=== PATIENT | male | born 1940 | race Caucasian/White ===

== ENCOUNTER → 2020-11-23 14:31 | Outpatient (CLI) | payer MEDICARE, SELFPAY ==
--- NOTE | ~2020-11-23 | XR_ITS ---
XR elbow RT 2V DATE: 11/23/2020 14:43 INDICATION: Right elbow pain. No known injury. TECHNIQUE: 4 views COMPARISON: None FINDINGS: There is mild degenerative change. No fracture or dislocation, periosteal reaction or bone destruction, radiopaque intra-articular loose body. No evidence of joint effusion. IMPRESSION: Mild degenerative change Reviewed, dictated and finalized at location A. IMPRESSION: Mild degenerative change
== END ==
PROVIDERS: PCP Family Medicine; Visit Provider Nurse Practitioner Family
DX: M19.021 Primary osteoarthritis, right elbow (principal)
CPT/HCPCS: 73070

== ENCOUNTER → 2022-12-30 12:22 | Outpatient (CLI) | payer MEDICARE, SELFPAY ==
--- NOTE | ~2022-12-30 | XR_ITS ---
EXAMINATION: XR chest 2V 12/30/2022 12:34 INDICATION: Productive cough PROCEDURE: 2 view chest COMPARISON: No prior studies for comparison. FINDINGS: The lungs are clear. The cardiomediastinal silhouette is within normal limits. There are no pleural effusions. There is no pneumothorax suspected. IMPRESSION: 1: NO ACUTE CARDIOPULMONARY DISEASE. Reviewed, dictated and finalized at location L.
== END ==
PROVIDERS: PCP Family Medicine; Visit Provider Family Medicine
DX: R05.8 Other specified cough (principal)
CPT/HCPCS: 71046

== ENCOUNTER 2023-12-01 02:01 | Day surgery (SDC) | payer MEDICARE, SELFPAY ==
[2023-11-12 11:54] VITALS: BMI 27.1
[2023-12-01 07:19] VITALS: BP 135/75; PULSE 62; RESP 18; TEMP 36.1; O2SAT 98; BMI 25.2
[2023-12-01] MEDS: LACTATED RINGERS 1,000 ML 150 ML IV CONT (07:37)
--- NOTE | 2023-12-01 08:01 | WPDANESEPPF ---
Anes - Initial Pre Proc Eval Procedure: Operation Date: 12/01/23 08:30 Proposed Procedures p Colonoscopy - Eddie Zayas MD Date/Time: 12/01/23 08:01 Surgeon: Eddie Zayas MD Pre Op Diagnosis: Positive Cologuard Patient Data Age: 82 Gender: M Height: 1.83 m Weight: 84.3 kg Last Vital Signs Temp 97 F L 12/01/23 07:19 Pulse 62 12/01/23 07:19 Resp 18 12/01/23 07:19 BP 135/75 12/01/23 07:19 Pulse Ox 62 L 12/01/23 07:19 O2 Del Method Room Air 12/01/23 07:19 Allergies Allergy/AdvReac Type Severity Reaction Status Date / Time No Known Allergies Allergy Unverified 11/12/23 11:33 Home Medications Medication Instructions Recorded Confirmed Type aspirin 81 mg tablet,delayed 81 mg PO DAILY 02/22/19 12/01/23 History release (Adult Low Dose Aspirin) fluticasone propionate 50 1 spray intranasal BID PRN Allergy 10/30/20 12/01/23 History mcg/actuation nasal Symptoms spray,suspension vitamin B complex (B 1 tablet PO DAILY 05/28/21 12/01/23 History Complex-Vitamin B12 tablet) carbidopa 25 mg-levodopa 100 mg 1 tablet PO QID #360 tabs 05/06/23 12/01/23 Rx tablet furosemide 20 mg tablet 20 mg PO QAM PRN edema #90 tabs 05/06/23 12/01/23 Rx metoprolol succinate 25 mg 25 mg PO DAILY #90 tabs 05/06/23 12/01/23 Rx tablet,extended release 24 hr meloxicam 15 mg tablet 15 mg PO DAILY PRN pain #30 tabs 07/08/23 12/01/23 Rx omeprazole 20 mg capsule,delayed 20 mg PO DAILY #90 caps 07/13/23 12/01/23 Rx release irbesartan 300 1 tablet PO DAILY #90 tabs 10/19/23 12/01/23 Rx mg-hydrochlorothiazide 12.5 mg tablet allopurinol 100 mg tablet 100 mg PO DAILY PRN prn 11/12/23 12/01/23 History Patient hx anesthesia problems: none Family hx anesthesia problems: none Results Review: All pre-operative results and documents have been reviewed as part of the pre-operative evaluation. [facility] Past Medical History Medical History Abnormal fasting glucose (05/16/22) fasting glucose 113 on 05/16/2022. Fasting glucose 117 with hemoglobin A1c 5.6 on 12/12/2022. Fasting glucose 104 with hemoglobin A1c 6.0 06/25/2023. At moderate risk for fall (~06/03/22) the patient fell [place] and crossing a ditch with water while carrying [place]. Basal cell carcinoma Basal cell carcinoma of skin of face (~12/2022) excision right-sided nose 01/25/2023 for basal cell carcinoma. BMI 30.0-30.9,adult Cellulitis of right elbow Chronic cough Normal chest x-ray 12/30/2022. Colon cancer screening Cologuard screening on 08/09/2023 was positive. Edema of both lower extremities due to peripheral venous insufficiency Edema of left lower extremity Elbow pain, right History of exposure to asbestos Normal chest x-ray 12/30/2022. 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 Uric acid 8.6 on 05/13/2021. Uric acid 7.9 on 05/16/2022. Uric acid 7.8 on 06/25/2023. 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 Mass of soft tissue of elbow Medicare annual wellness visit, subsequent Nocturia PSA 1.56 on 05/13/2021 Obesity (BMI 30.0-34.9) Osteoarthritis involving multiple joints on both sides of body Renal insufficiency (12/12/22) BUN 20, creatinine 1.30 with GFR 54 on 12/12/22. BUN 18, creatinine 1.31 with GFR 54 on 06/25/2023. Seasonal allergic rhinitis Seborrheic dermatitis Weight loss, non-intentional Family History Family History Father Acute myocardial infarction, Onset Age: 79 Grandparent Acute myocardial infarction, Onset Age: 62 Mother Carcinoma of colon, Onset Age: 44 Social History Social History Smoking status: Never smoker Alcohol intake: current Drinks per week: 7 Alcoh
--- NOTE | 2023-12-01 08:19 | PM.HPGS ---
History of Present Illness History of Present Illness Consent: Risks, benefits, and alternatives have been discussed and questions answered. Patient agrees to proceed with procedure. Chief complaint: Positive Cologuard Narrative: Dougie Dunne is a 82 year old male here for first colonoscopy, + cologuard Review of Systems Review of Systems: All systems reviewed & are unremarkable except as noted in HPI and below PMFSH Past Medical History Medical History Abnormal fasting glucose (05/16/22) fasting glucose 113 on 05/16/2022. Fasting glucose 117 with hemoglobin A1c 5.6 on 12/12/2022. Fasting glucose 104 with hemoglobin A1c 6.0 06/25/2023. At moderate risk for fall (~06/03/22) the patient fell [place] and crossing a ditch with water while carrying [place]. Basal cell carcinoma Basal cell carcinoma of skin of face (~12/2022) excision right-sided nose 01/25/2023 for basal cell carcinoma. BMI 30.0-30.9,adult Cellulitis of right elbow Chronic cough Normal chest x-ray 12/30/2022. Colon cancer screening Cologuard screening on 08/09/2023 was positive. Edema of both lower extremities due to peripheral venous insufficiency Edema of left lower extremity Elbow pain, right History of exposure to asbestos Normal chest x-ray 12/30/2022. 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 Uric acid 8.6 on 05/13/2021. Uric acid 7.9 on 05/16/2022. Uric acid 7.8 on 06/25/2023. 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 Mass of soft tissue of elbow Medicare annual wellness visit, subsequent Nocturia PSA 1.56 on 05/13/2021 Obesity (BMI 30.0-34.9) Osteoarthritis involving multiple joints on both sides of body Renal insufficiency (12/12/22) BUN 20, creatinine 1.30 with GFR 54 on 12/12/22. BUN 18, creatinine 1.31 with GFR 54 on 06/25/2023. Seasonal allergic rhinitis Seborrheic dermatitis Weight loss, non-intentional Family History Family History Father Acute myocardial infarction, Onset Age: 79 Grandparent Acute myocardial infarction, Onset Age: 62 Mother Carcinoma of colon, Onset Age: 44 Social History Social History Smoking status: Never smoker Alcohol intake: current Drinks per week: 7 Alcohol use details: 1 glass nightly Substance use: never Substance use type: does not use Lack of Transportation: No Lack of Food: Never True Current Housing: I Have Housing Concerned About Future Housing: No Difficulty Paying Gas/Electric Bills: No Difficulty Paying for Meds: No Currently Unemployed: No Education: Trade/Vocational Certificate Difficulty w/ Childcare or Family Care: No Living arrangements: with family Spiritual care concerns: No Meds Home Medications and Allergies Home Medications Medication Instructions Recorded Confirmed Type aspirin 81 mg tablet,delayed 81 mg PO DAILY 02/22/19 12/01/23 History release (Adult Low Dose Aspirin) fluticasone propionate 50 1 spray intranasal BID PRN Allergy 10/30/20 12/01/23 History mcg/actuation nasal Symptoms spray,suspension vitamin B complex (B 1 tablet PO DAILY 05/28/21 12/01/23 History Complex-Vitamin B12 tablet) carbidopa 25 mg-levodopa 100 mg 1 tablet PO QID #360 tabs 05/06/23 12/01/23 Rx tablet furosemide 20 mg tablet 20 mg PO QAM PRN edema #90 tabs 05/06/23 12/01/23 Rx metoprolol succinate 25 mg 25 mg PO DAILY #90 tabs 05/06/23 12/01/23 Rx tablet,extended release 24 hr meloxicam 15 mg tablet 15 mg PO DAILY PRN pain #30 tabs 07/08/23 12/01/23 Rx omeprazole 20 mg capsule,delayed 20 mg PO DAILY #90 caps 07/13/23 12/01/23 Rx release irbesartan 300 1 tablet PO DAILY #90 tabs 10/19/23 12/01/23 Rx mg-hydrochlorothiazide 12.5 mg tab
[2023-12-01 08:41] VITALS: BP 102/58; PULSE 56; RESP 18; O2SAT 97
[2023-12-01 08:51] VITALS: BP 111/62; PULSE 53; RESP 19; O2SAT 98
[2023-12-01 09:01] VITALS: BP 140/73; PULSE 51; RESP 21; O2SAT 99
== END 2023-12-01 09:09 | disposition home or self-care (01) ==
PROVIDERS: PCP Family Medicine; Referring Provider Nurse Practitioner; Visit Provider Internal Medicine Gastroenterology
PROC: 0DJD8ZZ Inspection of Lower Intestinal Tract, Via Natural or Artificial Opening Endoscopic (ICD-10-PCS; CPT 45378; principal; 2023-12-01 08:30)
DX: R19.5 Other fecal abnormalities (principal); Z80.0 Family history of malignant neoplasm of digestive organs; K64.8 Other hemorrhoids; K57.30 Diverticulosis of large intestine without perforation or abscess without bleeding; D12.0 Benign neoplasm of cecum; D12.3 Benign neoplasm of transverse colon
CPT/HCPCS: 45385; 88305; J2001; J2704; J7120